=== PATIENT | male | born 1955 | race Caucasian/White ===

== ENCOUNTER 2017-12-08 12:41 | Emergency (ER) | payer BC ==
--- NOTE | 2017-12-08 17:30 | EDM.PDOC ---
ED HPI GENERAL MEDICAL PROBLEM - General Chief Complaint: Bite:Animal, Insect Stated Complaint: CAT BITE Time Seen by Provider: 12/08/17 12:45 Source of Information: Reports: Patient History Limitations: Reports: No Limitations - History of Present Illness INITIAL COMMENTS - FREE TEXT/NARRATIVE: 61-year-old right-hand dominant male presents to the emergency room with complaints of being bitten by a cat over the MCP joint of his right long finger yesterday evening. Upon waking up this morning he noticed a swelling pain tenderness and redness along the MCP joint and dorsally over his hand. This seemed to progress with regards to the redness and discomfort particularly with any attempted motion of his long finger at the MCP joint, throughout the morning and now presents to the emergency room for further evaluation. He is otherwise very healthy he's had a history of a prostate cancer and prior abdominal surgeries otherwise denies significant past medical history. No hypertension, no coronary artery disease. No asthma or shortness of breath. No history of diabetes. Onset Date: 12/07/17 Onset Time: 18:00 Duration: Hour(s):, Getting Worse Location: Reports: Upper Extremity, Right (Right long finger hand and forearm) Quality: Reports: Throbbing Severity: Moderate Improves with: Reports: None Worsens with: Reports: Movement Context: Reports: Trauma (Bite) Associated Symptoms: Reports: No Other Symptoms Hand Pain Score (Numeric/FACES): 4 - Related Data Allergies Allergy/AdvReac Type Severity Reaction Status Date / Time No Known Allergies Allergy Verified 12/08/17 12:55 Home Meds: Home Meds Aspirin [Ecotrin] 81 mg PO BEDTIME 10/30/13 [History] Niacin [Niaspan] 1,000 mg PO DAILY 10/30/13 [History] atorvaSTATin [Lipitor] 2.5 mg PO BEDTIME 10/30/13 [History] Past Medical History - Past Health History Medical/Surgical History: Denies Medical/Surgical History HEENT History: Reports: Cataract Genitourinary History: Reports: BPH, Prostate Disorder Oncologic (Cancer) History: Reports: Prostate - Past Surgical History HEENT Surgical History: Reports: Cataract Surgery, LASIK Male Surgical History: Reports: Prostate Biopsy Social & Family History - Tobacco Use Smoking Status *Q: Never Smoker - Caffeine Use Caffeine Use: Reports: Coffee - Alcohol Use Days Per Week of Alcohol Use: 7 Number of Drinks Per Day: 1 Total Drinks Per Week: 7 - Recreational Drug Use Recreational Drug Use: No - Living Situation & Occupation Living situation: Reports: ED ROS GENERAL - Review of Systems Review Of Systems: ROS reveals no pertinent complaints other than HPI. ED EXAM, ANIMAL BITE - Physical Exam Exam: See Below Exam Limited By: No Limitations General Appearance: Alert, WD/WN, No Apparent Distress Extremities: Other (Right upper extremity examination, there is swelling warmth and redness extending proximally up the forearm and beginning at the MCP joint of the right long finger. Patient reports pain and tenderness over the MCP joint and has increased pain with flexion and extension both passively and actively. Skin markings were obtained indicating that the levels of redness and probable infection infection) Neurological: No Motor/Sensory Deficits Psychiatric: Normal Affect, Normal Mood Lymphadenopathy: Bilateral: No Adenopathy Course - Vital Signs Last Recorded V/S: Last Vital Signs Temp 99.8 F 12/08/17 12:56 Pulse 109 H 12/08/17 12:56 Resp 20 12/08/17 12:56 BP 135/83 12/08/17 12:56 Pulse Ox 98 12/08/17 12:56 Departure - Departure Time of Disposition: 13:55 Disposition: DC/Tfer to [facility] Condition: Good Clinical Impression: Tenosynovitis of finger and hand Cat bite of finger Qualifiers: Encounter type: initial encounter Qualified Code(s): S61.259A - Open bite of unspecified finger without damage to nail, initial encounter; W55.01XA - Bitten by cat, initial encounter - Discharge Information Instructions: Pasteurella Multocida Infection, Infectious Finger Tenosynovitis Referrals: Jerald Lance MD [Primary Care Provider] - Forms: ED Department Discharge - Assessment/Plan Assessment:: Cat-bite Infectious tenosynovitis right long finger Plan: 1. Orthopedic consult 2. Nothing by mouth 3. Patient was transferred [facility] for orthopedic management.
== END 2017-12-08 16:16 | disposition critical access hospital (66) ==
LOC: KA.ED 12:41
DX: S61.252A Open bite of right middle finger without damage to nail, initial encounter (principal); M65.141 Other infective (teno)synovitis, right hand; W55.01XA Bitten by cat, initial encounter; Z79.899 Other long term (current) drug therapy
CPT/HCPCS: 99283

== ENCOUNTER 2023-11-18 16:25 | Emergency (ER) | payer MEDICARE, BC ==
[2023-11-18] MEDS: Sodium Chloride 0.9% 10 ML Syringe FLUSH PRN (16:45)
[2023-11-18 16:54] LABS: BASOPHILS ABSOLUTE AUTO 0.02 10^3/uL (0.00-0.10); BASOPHILS PERCENT AUTO 0.3 % (0.0-1.0); EOSINOPHILS ABSOLUTE AUTO 0.08 10^3/uL (0.10-0.30); EOSINOPHILS PERCENT AUTO 1.1 % (1.0-3.0); HEMATOCRIT 44.9 % (40.0-52.0); HEMOGLOBIN 15.6 g/dL (13.0-17.0); IMMATURE GRAN ABSOLUTE AUTO 0.02 10^3/uL (0.00-0.50); IMMATURE GRAN PERCENT AUTO 0.3 % (0.0-5.0); LYMPHOCYTES ABSOLUTE AUTO 1.98 10^3/uL (1.00-4.00); LYMPHOCYTES PERCENT AUTO 26.8 % (20.0-40.0); MEAN CORPUSCULAR HEMOGLOBIN 30.7 pg (27.0-31.0); MEAN CORPUSCULAR HGB CONC 34.7 g/dL (32.0-36.0); MEAN CORPUSCULAR VOLUME 88.4 fL (82.0-92.0); MEAN PLATELET VOLUME 8.9 fL (7.4-10.4); MONOCYTES ABSOLUTE AUTO 0.57 10^3/uL (0.10-0.80); MONOCYTES PERCENT AUTO 7.7 % (2.0-8.0); NEUTROPHILS ABSOLUTE AUTO 4.72 10^3/uL (2.50-7.00); NEUTROPHILS PERCENT AUTO 63.8 % (50.0-70.0); PLATELET COUNT,PLT 225 10^3/uL (150-400); RED BLOOD CELL COUNT 5.08 10^6/uL (4.50-6.00); WHITE BLOOD CELL COUNT,WBC 7.39 10^3/uL (5.00-10.00)
[2023-11-18 17:05] LABS: APPEARANCE,URINE CLEAR (CLEAR); BILIRUBIN,URINE NEGATIVE (NEGATIVE); COLOR,URINE YELLOW (YELLOW); GLUCOSE,URINE NEGATIVE (NEGATIVE); KETONES,URINE NEGATIVE (NEGATIVE); LEUKOCYTE ESTERASE,URINE NEGATIVE (NEGATIVE); NITRITE,URINE NEGATIVE (NEGATIVE); OCCULT BLOOD,URINE NEGATIVE (NEGATIVE); PH,URINE 6.5 (5.0-9.0); PROTEIN,URINE NEGATIVE (NEGATIVE); UROBILINOGEN,URINE 0.2 E.U./dL (0.2-1.0)
[2023-11-18 17:16] LABS: BACTERIA,URINE OCCASIONAL /HPF (NONE TO FEW); EPITHELIAL CELLS,URINE RARE /LPF; RBC,URINE 0-5 /HPF (0-5); WBC,URINE 0-5 /HPF (0-5)
[2023-11-18 17:17] LABS: AMPHETAMINES SCREEN, URINE NEGATIVE (NEGATIVE); BARBITURATE SCREEN,URINE NEGATIVE (NEGATIVE); BENZODIAZEPINES SCREEN,URINE NEGATIVE (NEGATIVE); COCAINE METABOLITES,URINE NEGATIVE (NEGATIVE); METHADONE SCREEN, URINE NEGATIVE (NEGATIVE); METHAMPHETAMINES SCREEN, URINE NEGATIVE (NEGATIVE); OXYCODONE SCREEN,URINE NEGATIVE (NEGATIVE); PCP SCREEN,URINE NEGATIVE (NEGATIVE); TCA SCREEN,URINE NEGATIVE (NEGATIVE); THC SCREEN,URINE 50 NG/ML POSITIVE (NEGATIVE)
[2023-11-18 17:30] LABS: ALANINE AMINOTRANSFERASE,ALT 27 U/L (14-63); ALBUMIN 3.52 g/dL (3.40-5.00); ALKALINE PHOSPHATASE 56 U/L (46-116); ANION GAP 14.2 mmol/L (5-15); ASPARTATE AMNIOTRANSFERASE,AST 22 U/L (15-37); BILIRUBIN TOTAL 0.4 mg/dL (0.2-1.0); BLOOD UREA NITROGEN,BUN 12 mg/dL (7-18); CALCIUM 8.7 mg/dL (8.7-10.3); CHLORIDE,CL 105 mmol/L (98-107); CREATININE 1.03 mg/dL (0.51-1.17); EST CRCL DRUG DOSING (CG) 70.55 mL/min; ESTIMATED GFR 80 mL/min (>=60); GLUCOSE RANDOM 127 mg/dL (70-140); POTASSIUM,K 3.2 mmol/L (3.5-5.1); PROTEIN TOTAL,TP 6.9 g/dL (6.4-8.2); SODIUM,NA 141 mmol/L (136-145)
== END 2023-11-18 18:10 | disposition home or self-care (01) ==
LOC: KA.ED 16:25
DX: R03.0 Elevated blood-pressure reading, without diagnosis of hypertension (principal); R53.83 Other fatigue; R41.89 Other symptoms and signs involving cognitive functions and awareness; Z79.899 Other long term (current) drug therapy
CPT/HCPCS: 36415; 71046; 80053; 80305-QW; 81001; 84443; 84484; 85025; 93010; 99284; J3490